=== PATIENT | female | born 1955 | race Caucasian/White ===

== ENCOUNTER 2019-01-25 08:24 | Inpatient (IN) | payer BC ==
[2019-01-25] MEDS ORDERED: Albuterol/Ipratropium 3.0-0.5 MG/3 ML Neb Soln NEB ONE (08:36)
--- NOTE | 2019-01-25 08:56 | EDM.PDOC ---
ED HPI GENERAL MEDICAL PROBLEM - General Chief Complaint: Respiratory Problem Stated Complaint: HAVING A HARD TIME BREATHING Time Seen by Provider: 01/25/19 08:35 Source of Information: Reports: Patient History Limitations: Reports: No Limitations - History of Present Illness INITIAL COMMENTS - FREE TEXT/NARRATIVE: This 63 yo female patient was brought to the ED by her mother due to increased shortness of breath. The patient reports she has noticed the shortness of breath over the past month, but it has been getting worse. 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 The patient reports she quit smoking last night. The patient reports she has been coughing up yellowish sputum for the past week. Onset: Gradual Duration: Week(s):, Constant, Getting Worse Location: Reports: Chest, Other Quality: Reports: Pressure Severity: Moderate Improves with: Reports: None Worsens with: Reports: None Associated Symptoms: Reports: cough w sputum, Shortness of Breath, Weakness Lower Back Pain Score (Numeric/FACES): 8 - Related Data Allergies Allergy/AdvReac Type Severity Reaction Status Date / Time No Known Allergies Allergy Verified 06/04/18 07:07 Home Meds: Home Meds Amitriptyline HCl 1 tab PO DAILY 01/12/15 [History] Cyclobenzaprine HCl 10 mg PO DAILY 01/12/15 [History] PARoxetine [Paxil] 40 mg PO DAILY 01/12/15 [History] Albuterol [Ventolin 2 MG/5 ML] 1 - 2 puff INH ASDIRECTED 06/03/18 [History] Aspirin [Ecotrin] 325 mg PO DAILY 06/03/18 [History] Atenolol 25 mg PO DAILY 06/03/18 [History] Clopidogrel Bisulfate [Clopidogrel] 75 mg PO DAILY 06/03/18 [History] Gabapentin [Neurontin] 300 mg PO TID 06/03/18 [History] Lidocaine 2% [Xylocaine 2% Jelly] 1 applic TOP ASDIRECTED 06/03/18 [History] Sennosides/Docusate Sodium [Senna-Docusate Sodium] 1 tab PO DAILY 06/03/18 [ History] atorvaSTATin [Lipitor] 10 mg PO DAILY 06/03/18 [History] oxyCODONE HCl/Acetaminophen [Endocet 10-325 mg Tablet] 1 tab PO ASDIRECTED PRN 06/03/18 [History] Past Medical History HEENT History: Reports: None Cardiovascular History: Reports: Hypertension Respiratory History: Reports: COPD Gastrointestinal History: Reports: Chronic Constipation Genitourinary History: Reports: None 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 MYOFASCIAL PAIN. RIGHT HIP PAIN. DEGENERATIVE DISC DISEASE LUMBOSACRAL Neurological History: Reports: None, Cerebral Aneurysms Psychiatric History: Reports: Anxiety, Depression Endocrine/Metabolic History: Reports: None Hematologic History: Reports: None Immunologic History: Reports: None Oncologic (Cancer) History: Reports: None Dermatologic History: Reports: None - Infectious Disease History Infectious Disease History: Reports: Chicken Pox - Past Surgical History Head Surgeries/Procedures: Reports: None HEENT Surgical History: Reports: None Cardiovascular Surgical History: Reports: Aneurysm Respiratory Surgical History: Reports: None GI Surgical History: Reports: None Female Surgical History: Reports: Section Musculoskeletal Surgical History: Reports: None Social & Family History - Tobacco Use Smoking Status *Q: Current Every Day Smoker Years of Tobacco use: 40 Packs/Tins Daily: 1 - Caffeine Use Caffeine Use: Reports: Coffee, Soda - Recreational Drug Use Recreational Drug Use: No - Living Situation & Occupation Living situation: Reports: Single Occupation: Employed ED ROS GENERAL - Review of Systems Review Of Systems: ROS reveals no pertinent complaints other than HPI. ED EXAM, GENERAL - Physical Exam Exam: See Below Exam Limited By: No Limitations General Appearance: Alert, WD/WN, Moderate Distress, Obese Eye Exam: Bilateral Eye: EOMI, Normal Inspection, PERRL Ears: Normal External Exam, Normal Canal, Hearing Grossly Normal, Normal TMs Nose: Normal Inspection, Normal Mucosa, No Blood Throat/Mouth: Normal Inspection Head: Atraumatic, Normocephalic Neck: Normal Inspection, Supple, Non-Tender, Full Range of Motion Respiratory/Chest: Decreased Breath Sounds Cardiovascular: Normal Peripheral Pulses, Regular Rate, Rhythm, No Edema, No Gallop, No JVD, No Murmur, No Rub GI/Abdominal: Normal Bowel Sounds, Soft, Non-Tender, No Organomegaly, No Distention, No Abnormal Bruit, No Mass (Female) Exam: Deferred Rectal (Female) Exam: Deferred Back Exam: Normal Inspection, Full Range of Motion, NT Extremities: Normal Inspection, Normal Range of Motion, Non-Tender, Normal Capillary Refill, No Pedal Edema Neurological: Alert, Oriented, CN II-XII Intact, Normal Cognition, Normal Gait, Normal Reflexes, No Motor/Sensory Deficits Psychiatric: Anxious Skin Exam: Warm, Dry, Intact, Normal Color, No Rash Lymphatic: No Adenopathy Course - Vital Signs Last Recorded V/S: Last Vital Signs Temp 36.2 C 01/25/19 08:26 Pulse 83 01/25/19 08:45 Resp 26 H 01/25/19 08:26 BP 154/90 H 01/25/19 08:26 Pulse Ox 95 01/25/19 08:45 - Orders/Labs/Meds Orders: Active Orders 24 hr Category Date Time Status EKG Documentation Completion [RC] URGENT Care 01/25/19 08:25 Active RT Aerosol Therapy [RC] ASDIRECTED Care 01/25/19 08:36 Active CULTURE BLOOD [BC] Stat Lab 01/25/19 08:33 Received CULTURE BLOOD [BC] Stat Lab 01/25/19 09:17 Ordered CULTURE SPUTUM + SMEAR [RM] Stat Lab 01/25/19 09:16 Ordered UA RFX MARLEN AND CULT IF INDIC [URIN] Urgent Lab 01/25/19 08:25 Ordered Azithromycin [Zithromax] 500 mg Med 01/25/19 09:21 Ordered Sodium Chloride 0.9% [Normal Saline] 250 ml IV ONETIME cefTRIAXone [Rocephin] 1,000 mg Med 01/25/19 09:21 Ordered Sodium Chloride 0.9% [Normal Saline] 100 ml IV ONETIME Medication Orders Azithromycin 500 mg/ Sodium (Chloride) 250 mls @ 250 mls/hr IV ONETIME ONE Stop: 01/25/19 10:20 Ceftriaxone Sodium 1,000 mg/ (Sodium Chloride) 100 mls @ 200 mls/hr IV ONETIME ONE Stop: 01/25/19 09:50 Labs: Laboratory Tests 01/25/19 01/25/19 01/25/19 Range/Units 08:33 08:33 08:33 WBC 16.5 H (5.0-10.0) 10^3/uL RBC 4.57 (4.2-5.4) 10^6/uL Hgb 14.5 D (12.0-16.0) g/dL Hct 43.6 (37.0-47.0) % MCV 95.4 D (80-100) fL MCH 31.7 (27.0-34.0) pg MCHC 33.3 (33.0-35.0) g/dL Plt Count 355 (150-450) 10^3/uL Neut % (Auto) 76.4 H (42.2-75.2) % Lymph % (Auto) 14.7 L (20.5-50.1) % [place] % (Auto) 8.5 H (2-8) % Eos % (Auto) 0.2 L (1.0-3.0) % Baso % (Auto) 0.2 (0.0-1.0) % Sodium 136 (135-145) mmol/L Potassium 3.7 (3.6-5.0) mmol/L Chloride 98 L (101-111) mmol/L Carbon Dioxide 23.0 (21.0-31.0) mmol/L Anion Gap 18.7 BUN 12 (7-18) mg/dL Creatinine 0.7 (0.6-1.3) mg/dL Est Cr Clr Drug Dosing 68.93 mL/min Estimated GFR (MDRD) > 60 BUN/Creatinine Ratio 17.14 Glucose 189 H (74-105) mg/dL Lactic Acid 3.3 H (0.5-2.2) mmol/L Calcium 8.6 (8.4-10.2) mg/dl Total Bilirubin 0.9 (0.2-1.0) mg/dL AST 28 (10-42) IU/L ALT 19 (10-60) IU/L Alkaline Phosphatase 82 (42-121) IU/L Troponin I 0.03 H* (0.00-0.02) ng/ml B-Natriuretic Peptide 819 H (0-100) pg/ml Total Protein 7.2 (6.7-8.2) g/dl Albumin 3.9 (3.2-5.5) g/dl Globulin 3.3 Albumin/Globulin Ratio 1.18 Meds: Medications Generic Name Dose Route Start Last Admin Trade Name Freq PRN Reason Stop Dose Admin Azithromycin 500 mg/ Sodium 250 mls @ 250 mls/hr 01/25/19 09:21 Chloride IV 01/25/19 10:20 ONETIME ONE Ceftriaxone Sodium 1,000 mg/ 100 mls @ 200 mls/hr 01/25/19 09:21 Sodium Chloride IV 01/25/19 09:50 ONETIME ONE Discontinued Medications Generic Name Dose Route Start Last Admin Trade Name Yung PRN Reason Stop Dose Admin Albuterol/Ipratropium 3 ml 01/25/19 08:36 01/25/19 08:44 Duoneb 3.0-0.5 Mg/3 Ml NEB 01/25/19 08:37 3 ml ONETIME ONE Administration Furosemide 40 mg 01/25/19 09:21 Lasix IVPUSH 01/25/19 09:22 NOW ONE Departure - Departure Time of Disposition: 09:31 Disposition: Admitted As Inpatient 67 Condition: Poor Clinical Impression: COPD exacerbation, Bronchitis - Discharge Information *PRESCRIPTION DRUG MONITORING PROGRAM REVIEWED*: Not Applicable *COPY OF PRESCRIPTION DRUG MONITORING REPORT IN PATIENT JAYY: Not Applicable Care Plan Goals: Discussed the history, examination, lab and treatments with Dr. Mancilla. The patient will be admitted to [facility] in [place] for continued evaluation and treatment as an inpatient. - My Orders Last 24 Hours: My Active Orders 01/25/19 08:25 EKG Documentation Completion [RC] URGENT UA RFX MARLEN AND CULT IF INDIC [URIN] Urgent 01/25/19 08:33 CULTURE BLOOD [BC] Stat 01/25/19 08:36 RT Aerosol Therapy [RC] ASDIRECTED 01/25/19 09:16 CULTURE SPUTUM + SMEAR [RM] Stat 01/25/19 09:17 CULTURE BLOOD [BC] Stat 01/25/19 09:21 Azithromycin [Zithromax] 500 mg Sodium Chloride 0.9% [Normal Saline] 250 ml IV ONETIME cefTRIAXone [Rocephin] 1,000 mg Sodium Chloride 0.9% [Normal Saline] 100 ml IV ONETIME - Assessment/Plan Last 24 Hours: My Active Orders 01/25/19 08:25 EKG Documentation Completion [RC] URGENT UA RFX MARLEN AND CULT IF INDIC [URIN] Urgent 01/25/19 08:33 CULTURE BLOOD [BC] Stat 01/25/19 08:36 RT Aerosol Therapy [RC] ASDIRECTED 01/25/19 09:16 CULTURE SPUTUM + SMEAR [RM] Stat 01/25/19 09:17 CULTURE BLOOD [BC] Stat 01/25/19 09:21 Azithromycin [Zithromax] 500 mg Sodium Chloride 0.9% [Normal Saline] 250 ml IV ONETIME cefTRIAXone [Rocephin] 1,000 mg Sodium Chloride 0.9% [Normal Saline] 100 ml IV ONETIME
[2019-01-25 09:08] LABS: ANION GAP 18.7; CHLORIDE,CL 98 mmol/L (101-111); SODIUM,NA 136 mmol/L (135-145)
--- NOTE | 2019-01-25 09:12 | CR ---
Clinical history: 63-year-old obese female "smoker" complaining of shortness of breath. No previous or comparison CXR. Interpretation: Abnormal. *Peribronchial "cuffing" and... generalized abnormal interstitial pattern. O2 sats? Normal cardiac silhouette without cephalization of vascular flow, signs of alveolar edema or dependent effusion. No focal lobar consolidation i.e. no alveolar infiltrates, atelectasis or collapse. No lung mass or hilar lymphadenopathy. No air trapping. No pneumothorax or free subdiaphragmatic air. CONCLUSION: Abnormal interstitial pattern. No signs of focal consolidation (lobar pneumonia) or heart failure.
[2019-01-25] MEDS ORDERED: Furosemide 40 MG/4 ML VIAL IVPUSH ONE (09:21)
[2019-01-25] MEDS ORDERED: Azithromycin 500 MG in Sodium Chloride 0.9% 250 ML IV ONE (09:21)
[2019-01-25 10:02] LABS: BASE EXCESS ARTERIAL 0 mmol/L ((-2)-(+3)); BICARBONATE,ARTERIAL 24.6 mmol/L (22-26); O2 DELIVERY DEVICE NASAL CANNULA; O2 SATURATION ARTERIAL 96 % (95-100); PCO2 ARTERIAL 41 mmHg (35-45); PO2 ARTERIAL 74 mmHg (70-100)
[2019-01-25] MEDS ORDERED: LORazepam 2 MG/ML Syringe IVPUSH ONE (10:02)
[2019-01-25 10:03] LABS: ALLEN TEST NP brachial
[2019-01-25] MEDS ORDERED: Sodium Chloride 0.9% 10 ML Syringe FLUSH PRN (11:49)
[2019-01-25] MEDS ORDERED: Albuterol/Ipratropium 3.0-0.5 MG/3 ML Neb Soln NEB PRN (11:51)
[2019-01-25] MEDS ORDERED: Cyclobenzaprine 10 MG Tab PO PRN (11:53)
[2019-01-25] MEDS ORDERED: Acetaminophen/oxyCODONE 325-5 MG Tab PO PRN (11:53)
--- NOTE | 2019-01-25 12:14 | PCM.HP ---
H&P History of Present Illness - General Date of Service: 01/25/19 Admit Problem/Dx: Admission Diagnosis/Problem Admission Diagnosis/Problem Chronic obstructive pulmonary disease with bronchospasm Source of Information: Patient, Family History Limitations: Reports: Other (speech impediment, hearing difficulty) - History of Present Illness Initial Comments - Free Text/Narative: 63 yo F with PMH of COPD, brain aneurysm s/p clipping/coiling, hypertension, cigarette smoking, who presents with SOB. SOB has been ongoing for a few weeks but worsened in the past two days. Also associated with cough, productive of scanty white sputum In the ED, she was noted to be hypoxic on room air with improvement when placed on nasal canula. She also complains of right wrist pain, sharp, moderate to severe intensity. Lower Back Pain Score (Numeric/FACES): 3 - Related Data Allergies/Adverse Reactions: Allergies Allergy/AdvReac Type Severity Reaction Status Date / Time No Known Allergies Allergy Verified 01/25/19 10:01 Home Medications: Home Meds Cyclobenzaprine HCl 10 mg PO TID PRN 01/12/15 [History] PARoxetine [Paxil] 40 mg PO DAILY 01/12/15 [History] Atenolol 50 mg PO DAILY 06/03/18 [History] Clopidogrel Bisulfate [Clopidogrel] 75 mg PO DAILY 06/03/18 [History] Gabapentin [Neurontin] 300 mg PO TID 06/03/18 [History] atorvaSTATin [Lipitor] 20 mg PO DAILY 01/25/19 [History] hydroCHLOROthiazide [Hydrochlorothiazide] 50 mg PO DAILY 01/25/19 [History] oxyCODONE HCl/Acetaminophen [Percocet 10-325 mg Tablet] 1 tab PO Q8HR PRN [History] Past Medical History HEENT History: Reports: Hard of Hearing, Impaired Vision Cardiovascular History: Reports: Hypertension Respiratory History: Reports: COPD Gastrointestinal History: Reports: Chronic Constipation Genitourinary History: Reports: 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 MYOFASCIAL PAIN. RIGHT HIP PAIN. DEGENERATIVE DISC DISEASE LUMBOSACRAL Neurological History: Reports: None, Cerebral Aneurysms Psychiatric History: Reports: Anxiety, Depression Endocrine/Metabolic History: Reports: None Hematologic History: Reports: None Other Hematologic History: thrombocytosis. erythrocytosis Immunologic History: Reports: None Oncologic (Cancer) History: Reports: None Dermatologic History: Reports: None - Infectious Disease History Infectious Disease History: Reports: Chicken Pox - Past Surgical History Head Surgeries/Procedures: Reports: None HEENT Surgical History: Reports: Tonsillectomy Cardiovascular Surgical History: Reports: Aneurysm Respiratory Surgical History: Reports: None GI Surgical History: Reports: None Female Surgical History: Reports: Section Musculoskeletal Surgical History: Reports: None Social & Family History - Tobacco Use Smoking Status *Q: Current Every Day Smoker Years of Tobacco use: 45 Packs/Tins Daily: 1 - Caffeine Use Caffeine Use: Reports: None - Recreational Drug Use Recreational Drug Use: Yes Drug Use in Last 12 Months: Yes Recreational Drug Type: Reports: Marijuana/Hashish - Living Situation & Occupation Living situation: Reports: Single Occupation: Employed H&P Review of Systems - Review of Systems: Review Of Systems: See Below General: Reports: No Symptoms. Denies: Fever HEENT: Reports: No Symptoms Pulmonary: Reports: Shortness of Breath, Cough, Sputum Cardiovascular: Reports: No Symptoms Gastrointestinal: Reports: No Symptoms Genitourinary: Reports: No Symptoms Musculoskeletal: Reports: No Symptoms Skin: Reports: No Symptoms Psychiatric: Reports: No Symptoms Neurological: Reports: Paresthesia, Other Exam - Exam Exam: See Below - Vital Signs Vital Signs: Last Vital Signs Temp 37.6 C 01/25/19 10:51 Pulse 80 01/25/19 10:51 Resp 24 H 01/25/19 10:51 BP 115/64 01/25/19 10:51 Pulse Ox 97 01/25/19 10:51 Weight: 80.014 kg - Exam General: Alert, Oriented HEENT: Conjunctiva Clear Neck: Supple Lungs: Clear to Auscultation Cardiovascular: Regular Rate, Regular Rhythm GI/Abdominal Exam: Normal Bowel Sounds, Soft Extremities: Normal Inspection, Non-Tender, No Pedal Edema - Patient Data Lab Results Last 24 hrs: Laboratory Results - last 24 hr 01/25/19 01/25/19 01/25/19 Range/Units 08:33 08:33 08:33 WBC 16.5 H (5.0-10.0) 10^3/uL RBC 4.57 (4.2-5.4) 10^6/uL Hgb 14.5 D (12.0-16.0) g/dL Hct 43.6 (37.0-47.0) % MCV 95.4 D (80-100) fL MCH 31.7 (27.0-34.0) pg MCHC 33.3 (33.0-35.0) g/dL Plt Count 355 (150-450) 10^3/uL Neut % (Auto) 76.4 H (42.2-75.2) % Lymph % (Auto) 14.7 L (20.5-50.1) % [place] % (Auto) 8.5 H (2-8) % Eos % (Auto) 0.2 L (1.0-3.0) % Baso % (Auto) 0.2 (0.0-1.0) % ABG pH (7.35-7.45) ABG pCO2 (35-45) mmHg ABG pO2 (70-100) mmHg ABG HCO3 (22-26) mmol/L ABG O2 Saturation (95-100) % ABG Base Excess ((-2)-(+3)) mmol/L Shashi Test O2 Delivery Device Sodium 136 (135-145) mmol/L Potassium 3.7 (3.6-5.0) mmol/L Chloride 98 L (101-111) mmol/L Carbon Dioxide 23.0 (21.0-31.0) mmol/L Anion Gap 18.7 BUN 12 (7-18) mg/dL Creatinine 0.7 (0.6-1.3) mg/dL Est Cr Clr Drug Dosing 68.93 mL/min Estimated GFR (MDRD) > 60 BUN/Creatinine Ratio 17.14 Glucose 189 H (74-105) mg/dL Lactic Acid 3.3 H (0.5-2.2) mmol/L Calcium 8.6 (8.4-10.2) mg/dl Total Bilirubin 0.9 (0.2-1.0) mg/dL AST 28 (10-42) IU/L ALT 19 (10-60) IU/L Alkaline Phosphatase 82 (42-121) IU/L Troponin I 0.03 H* (0.00-0.02) ng/ml B-Natriuretic Peptide 819 H (0-100) pg/ml Total Protein 7.2 (6.7-8.2) g/dl Albumin 3.9 (3.2-5.5) g/dl Globulin 3.3 Albumin/Globulin Ratio 1.18 Urine Color (YELLOW) Urine Appearance (CLEAR) Urine pH (5.0-9.0) Ur Specific [place] (1.005-1.030) Urine Protein (NEGATIVE) Urine Glucose (UA) (NEGATIVE) Urine Ketones (NEGATIVE) Urine Occult Blood (NEGATIVE) Urine Nitrite (NEGATIVE) Urine Bilirubin (NEGATIVE) Urine Urobilinogen (0.2-1.0) mg/dL Ur Leukocyte Esterase (NEGATIVE) Urine RBC /HPF Urine WBC (0-5/HPF) /HPF Ur Epithelial Cells /HPF Urine Bacteria (0-FEW/HPF) /HPF 01/25/19 01/25/19 Range/Units 09:55 09:58 WBC (5.0-10.0) 10^3/uL RBC (4.2-5.4) 10^6/uL Hgb (12.0-16.0) g/dL Hct (37.0-47.0) % MCV (80-100) fL MCH (27.0-34.0) pg MCHC (33.0-35.0) g/dL Plt Count (150-450) 10^3/uL Neut % (Auto) (42.2-75.2) % Lymph % (Auto) (20.5-50.1) % [place] % (Auto) (2-8) % Eos % (Auto) (1.0-3.0) % Baso % (Auto) (0.0-1.0) % ABG pH 7.40 (7.35-7.45) ABG pCO2 41 (35-45) mmHg ABG pO2 74 (70-100) mmHg ABG HCO3 24.6 (22-26) mmol/L ABG O2 Saturation 96 (95-100) % ABG Base Excess 0 ((-2)-(+3)) mmol/L Shashi Test Preparole Counseling Aide brachial O2 Delivery Device Nasal cannula Sodium (135-145) mmol/L Potassium (3.6-5.0) mmol/L Chloride (101-111) mmol/L Carbon Dioxide (21.0-31.0) mmol/L Anion Gap BUN (7-18) mg/dL Creatinine (0.6-1.3) mg/dL Est Cr Clr Drug Dosing mL/min Estimated GFR (MDRD) BUN/Creatinine Ratio Glucose (74-105) mg/dL Lactic Acid (0.5-2.2) mmol/L Calcium (8.4-10.2) mg/dl Total Bilirubin (0.2-1.0) mg/dL AST (10-42) IU/L ALT (10-60) IU/L Alkaline Phosphatase (42-121) IU/L Troponin I (0.00-0.02) ng/ml B-Natriuretic Peptide (0-100) pg/ml Total Protein (6.7-8.2) g/dl Albumin (3.2-5.5) g/dl Globulin Albumin/Globulin Ratio Urine Color Yellow (YELLOW) Urine Appearance Clear (CLEAR) Urine pH 6.0 (5.0-9.0) Ur Specific [place] 1.015 (1.005-1.030) Urine Protein Negative (NEGATIVE) Urine Glucose (UA) 100 H (NEGATIVE) Urine Ketones Negative (NEGATIVE) Urine Occult Blood Moderate H (NEGATIVE) Urine Nitrite Negative (NEGATIVE) Urine Bilirubin Negative (NEGATIVE) Urine Urobilinogen 0.2 (0.2-1.0) mg/dL Ur Leukocyte Esterase Negative (NEGATIVE) Urine RBC 5-10 H /HPF Urine WBC 0-5 (0-5/HPF) /HPF Ur Epithelial Cells Moderate H /HPF Urine Bacteria Few (0-FEW/HPF) /HPF Result Diagrams: 01/25/19 08:33 01/25/19 08:33 Problem List Initiated/Reviewed/Updated: Yes Orders Last 24hrs: Active Orders 24 hr Category Date Time Status Patient Status [ADT] Routine ADT 01/25/19 11:49 Active Ambulate [RC] ASDIRECTED Care 01/25/19 11:49 Active EKG Documentation Completion [RC] URGENT Care 01/25/19 08:25 Active Height and Weight [RC] DAILY Care 01/25/19 11:49 Active Oxygen Therapy [RC] PRN Care 01/25/19 11:49 Active Peripheral IV Care [RC] . DIRECTED Care 01/25/19 11:49 Active RT Aerosol Therapy [RC] ASDIRECTED Care 01/25/19 08:36 Active RT Aerosol Therapy [RC] ASDIRECTED Care 01/25/19 11:52 Active RT Post Treatment Assessment [RC] Click to Edit Care 01/25/19 11:57 Active RT Pre-Treatment Assessment [RC] Click to Edit Care 01/25/19 11:57 Active Up With Assistance [RC] ASDIRECTED Care 01/25/19 11:49 Active VTE/DVT Education [RC] PER UNIT ROUTINE Care 01/25/19 11:49 Active Vital Signs [RC] Q4H Care 01/25/19 11:49 Active Regular Diet [DIET] Diet 01/25/19 Breakfast Active CULTURE BLOOD [BC] Stat Lab 01/25/19 08:33 Received CULTURE BLOOD [BC] Stat Lab 01/25/19 09:26 Received CULTURE SPUTUM + SMEAR [RM] Stat Lab 01/25/19 09:16 Ordered Albuterol/Ipratropium [DuoNeb 3.0-0.5 MG/3 ML] Med 01/25/19 11:51 Ordered 3 ml NEB Q2H PRN Albuterol/Ipratropium [DuoNeb 3.0-0.5 MG/3 ML] Med 01/25/19 15:00 Ordered 3 ml NEB Q4HRRT Atenolol [Tenormin] Med 01/25/19 12:00 Ordered 50 mg PO DAILY Azithromycin [Zithromax] Med 01/26/19 09:00 Ordered 500 mg PO DAILY Clopidogrel [Plavix] Med 01/25/19 12:00 Ordered 75 mg PO DAILY Cyclobenzaprine [Flexeril] Med 01/25/19 11:53 Ordered 10 mg PO TID PRN Enoxaparin [Lovenox] Med 01/25/19 12:00 Ordered 40 mg SUBCUT DAILY Gabapentin [Neurontin] Med 01/25/19 14:00 Ordered 300 mg PO TID Mometasone/Formoterol [Dulera 100-5 MCG] Med 01/25/19 18:00 Ordered 2 puff IH BIDRT Nicotine [Habitrol] Med 01/25/19 12:00 Ordered 21 mg TRDERM DAILY PARoxetine [Paxil] Med 01/25/19 12:00 Ordered 40 mg PO DAILY Sodium Chloride 0.9% [Saline Flush] Med 01/25/19 11:49 Ordered 10 ml FLUSH ASDIRECTED PRN Tiotropium [Spiriva HandiHaler] Med 01/25/19 12:00 Ordered 18 mcg INH DAILY atorvaSTATin [Lipitor] Med 01/25/19 12:00 Ordered 20 mg PO DAILY cefTRIAXone [Rocephin] 1 gm Med 01/26/19 08:00 Ordered Sodium Chloride 0.9% [Normal Saline] 50 ml IV Q24H hydroCHLOROthiazide [Hydrochlorothiazide] Med 01/25/19 12:00 Ordered 50 mg PO DAILY oxyCODONE HCl/Acetaminophen Med 01/25/19 11:53 Ordered 1 tab PO Q8HR PRN predniSONE Med 01/26/19 08:00 Ordered 50 mg PO WITHBREAKFAST Peripheral IV Insertion Adult [OM.PC] Routine Oth 01/25/19 11:49 Ordered Saline Lock Insert [OM.PC] Routine Oth 01/25/19 11:49 Ordered Medication Orders Albuterol/Ipratropium (Duoneb 3.0-0.5 Mg/3 Ml) 3 ml NEB Q4HRRT MIKE Albuterol/Ipratropium (Duoneb 3.0-0.5 Mg/3 Ml) 3 ml NEB Q2H PRN PRN Reason: Shortness of Breath Atenolol (Tenormin) 50 mg PO DAILY [facility] Atorvastatin Calcium (Lipitor) 20 mg PO DAILY [facility] Azithromycin (Zithromax) 500 mg PO DAILY [facility] Clopidogrel Bisulfate (Plavix) 75 mg PO DAILY [facility] Cyclobenzaprine HCl (Flexeril) 10 mg PO TID PRN PRN Reason: Muscle Spasm Gabapentin (Neurontin) 300 mg PO TID [facility] Ceftriaxone Sodium 1 gm/ (Sodium Chloride) 50 mls @ 50 mls/hr IV Q24H [facility] Mometasone Furoate/Formoterol Fumar (Dulera 100-5 Mcg) 2 puff IH BIDRT [facility] Nicotine (Habitrol) 21 mg TRDERM DAILY [facility] Non-Formulary Medication (Hydrochlorothiazide [Hydrochlorothiazide]) 50 mg PO DAILY [facility] Non-Formulary Medication (Oxycodone Hcl/Acetaminophen) 1 tab PO Q8HR PRN PRN Reason: Pain Non-Formulary Medication (Paroxetine [Paxil]) 40 mg PO DAILY [facility] Prednisone (Prednisone) 50 mg PO WITHBREAKFAST [facility] Sodium Chloride (Saline Flush) 10 ml FLUSH ASDIRECTED PRN PRN Reason: Keep Vein Open Tiotropium [place] (Spiriva Handihaler) 18 mcg INH DAILY [facility] Assessment/Plan Comment:: 63 yo F with PMH of COPD p/w SOB #SOB likely COPD exacerbation given hx of smoking However ABG shows no significant hypercapnia, HCO3 in serum is 23. In the setting of severe COPD I would expect a higher than usual PCo2 and HCO3 Also BNP is elevated, no hx of CHF Plan: Check CTPE to r/o PE Check EKG can continue with COPD protocol for now including duonebs, dulera, spiriva and prednisone treat empirically for CAP with azithromycin/ceftriaxone I counselled the patient to quit smoking #right wrist pain likely carpal tunnel syndrome continue gabapentin pain mgt #Hx of brain aneurysm continue plavix #Cigarette smoking counseled px to quit smoking nicotine patch #Code status FC #DVT ppx SC lovenox
[2019-01-25] MEDS ORDERED: Iopamidol 755 Mg/ML 100 ML Bottle IVPUSH ONE (12:25)
[2019-01-25] MEDS ORDERED: oxyCODONE 5 MG Tab PO PRN (12:47)
[2019-01-25] MEDS: Nicotine 21 MG/24 Hr Patch TRDERM SCH ×2 (13:56→15:26)
[2019-01-25] MEDS: Enoxaparin 40 MG/0.4 ML Syringe SUBCUT SCH ×2 (13:57→15:25)
[2019-01-25] MEDS: Hydrochlorothiazide 25 MG Tab PO SCH ×2 (13:57→15:22)
[2019-01-25] MEDS: atorvaSTATin 20 MG Tab PO SCH ×2 (13:57→15:22)
[2019-01-25] MEDS: Tiotropium Inhaler 18 MCG Inhalation Powder Cap Kit of 5 INH SCH ×2 (13:58→15:26)
[2019-01-25] MEDS: Atenolol 50 MG Tab PO SCH ×2 (13:58→15:27)
[2019-01-25] MEDS: Clopidogrel 75 MG Tab PO SCH ×2 (13:58→15:22)
[2019-01-25] MEDS: PARoxetine 20 MG Tab PO SCH ×2 (13:58→15:22)
[2019-01-25] MEDS: Albuterol/Ipratropium 3.0-0.5 MG/3 ML Neb Soln NEB SCH ×3 (14:58→22:58)
--- NOTE | 2019-01-25 15:15 | CT ---
Clinical history: 63-year-old 176 pound hypertensive, "noncompliant", female smoker with unexplained shortness of breath. (History of intracranial aneurysms; aneurysms "coiled"; and, drug abuse) Scan technique: Volume acquisition of data from the chest (bony thorax, lungs and mediastinum) employing pulmonary embolism technique i.e. 67 cc concentrated nonionic Isovue 370 at 5 cc/s via power injector while patient was lying supine on the Siemens multi slice scanner [place], [place]. All data archived in the PACS system for storage, reformatting axial/sagittal/coronal planes and study is (lung/mediastinal window). Patient uncooperative and would not (could not?) comply with technologist instructions for satisfactorily performing this diagnostic procedure. Interpretation: 1. Chronic severe multilevel lower cervical disc disease; and, multilevel thoracic disc disease this osteopenic patient with hypertrophic spondylosis. No sign of pathologic skeletal lesion, spinal fracture or dislocation. 2. Respiratory motion artifact and Valsalva contributing to the untimely delivery of the contrast bolus to the pulmonary arteries. 3. Scattered cystic/bullous lesions both lung dozier and bibasilar atelectasis. Incomplete filling of the pulmonary artery circulation but no suggestion of intraluminal filling defect or thrombus and no peripheral pleural-based wedge shaped infarcts. No abnormal focal oligemia or pleural effusions. 4. No lung mass, significant hilar/mediastinal lymphadenopathy, or focal lobar pneumonia. 5. Normal cardiac silhouette. No pericardial effusion. 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 No cephalization of vascular flow, signs of alveolar edema or dependent pleural effusion. CONCLUSION: Low probability pulmonary embolism/infarct (significant technical limitations this exam). Serum D dimer? COPD. No signs of heart failure, lung malignancy or lobar pneumonia.
[2019-01-25] MEDS: Gabapentin 300 MG Cap PO SCH ×2 (15:23→21:08)
[2019-01-25] MEDS: Formoterol/Mometasone 100-5 MCG 8.8 GM Inhaler IH SCH (18:25)
[2019-01-25] MEDS ORDERED: Melatonin 3 MG Tab PO PRN (18:58)
[2019-01-26] MEDS: Albuterol/Ipratropium 3.0-0.5 MG/3 ML Neb Soln NEB SCH ×3 (03:10→11:28)
[2019-01-26] MEDS: Formoterol/Mometasone 100-5 MCG 8.8 GM Inhaler IH SCH (07:12)
[2019-01-26] MEDS ORDERED: predniSONE 20 MG Tab PO SCH (08:00)
[2019-01-26] MEDS ORDERED: Azithromycin 250 MG Tab PO SCH (09:00)
[2019-01-26] MEDS: Nicotine 21 MG/24 Hr Patch TRDERM SCH (09:19)
[2019-01-26] MEDS: Hydrochlorothiazide 25 MG Tab PO SCH (09:20)
[2019-01-26] MEDS: atorvaSTATin 20 MG Tab PO SCH (09:21)
[2019-01-26] MEDS: Gabapentin 300 MG Cap PO SCH (09:21)
[2019-01-26] MEDS: Enoxaparin 40 MG/0.4 ML Syringe SUBCUT SCH (09:21)
[2019-01-26] MEDS: Clopidogrel 75 MG Tab PO SCH (09:22)
[2019-01-26] MEDS: PARoxetine 20 MG Tab PO SCH (09:22)
[2019-01-26] MEDS: Atenolol 50 MG Tab PO SCH (09:24)
[2019-01-26] MEDS: Tiotropium Inhaler 18 MCG Inhalation Powder Cap Kit of 5 INH SCH (09:25)
[2019-01-26] MEDS ORDERED: cefTRIAXone 1 GM in Sodium Chloride 0.9% 50 ML IV SCH (10:00)
[2019-01-26 13:46] VITALS: BP 106/56
--- NOTE | 2019-01-26 14:44 | PCM.DCSUM1 ---
Discharge Summary - Hospital Course Free Text/Narrative:: 63 yo F with PMH of COPD, brain aneurysm s/p clipping/coiling, hypertension, cigarette smoking, who presents with SOB. SOB has been ongoing for weeks but worsened in the past two days. Also associated with cough, productive of scanty white sputum In the ED, she was noted to be hypoxic on room air with improvement when placed on nasal canula. An initial impression of COPD exacerbation was made. There was also a possible anxiety component in the patient's presentation However ABG shows no significant hypercapnia, HCO3 in serum is 23. In the setting of severe COPD I would expect a higher than usual PCo2 and HCO3 We checked a CTPE to r/o PE. No PE or focal oligemia was seen in the technically limited study, however widespread cystic and bullous lesions were seen suggestive of ILD/IPF Patient's had resolved shortly after admission. She had a walking desat study that did not suggest any need for home oxygen. I counselled the patient to quit smoking Follow up with PCP and the Pulmonary clinic - Discharge Data Discharge Date: 01/26/19 Discharge Disposition: Home, Self-Care 01 Condition: Fair - Patient Summary/Data Consults: Consultations 01/26/19 10:50 OT Evaluation and Treatment [CONS] Routine PT Evaluation and Treatment [CONS] Routine - Patient Instructions Diet: Usual Diet as Tolerated Activity: As Tolerated Other/Special Instructions: STOP SMOKING - Discharge Plan *PRESCRIPTION DRUG MONITORING PROGRAM REVIEWED*: Not Applicable *COPY OF PRESCRIPTION DRUG MONITORING REPORT IN PATIENT JAYY: Not Applicable Home Medications: Home Meds Cyclobenzaprine HCl 10 mg PO TID PRN 01/12/15 [History] PARoxetine [Paxil] 40 mg PO DAILY 01/12/15 [History] Atenolol 50 mg PO DAILY 06/03/18 [History] Clopidogrel Bisulfate [Clopidogrel] 75 mg PO DAILY 06/03/18 [History] Gabapentin [Neurontin] 300 mg PO TID 06/03/18 [History] atorvaSTATin [Lipitor] 20 mg PO DAILY 01/25/19 [History] hydroCHLOROthiazide [Hydrochlorothiazide] 50 mg PO DAILY 01/25/19 [History] oxyCODONE HCl/Acetaminophen [Percocet 10-325 mg Tablet] 1 tab PO Q8HR PRN [History] Patient Handouts: Steps to Quit Smoking, [id number], Coping with Quitting Smoking Referrals: Nohelia Vazquez MD [Physician] - PCP,Unknown [Ordering Only Provider] - - Discharge Summary/Plan Comment DC Time >30 min.: Yes - General Info Date of Service: 01/26/19 Admission Dx/Problem (Free Text: Admission Diagnosis/Problem Admission Diagnosis/Problem Chronic obstructive pulmonary disease with bronchospasm Subjective Update: no SOB, no wheezing, no chest pain right wrist pain is improved. - Review of Systems General: Reports: No Symptoms HEENT: Reports: No Symptoms Pulmonary: Reports: No Symptoms Cardiovascular: Reports: No Symptoms Gastrointestinal: Reports: No Symptoms Genitourinary: Reports: No Symptoms Musculoskeletal: Reports: No Symptoms - Patient Data Vitals - Most Recent: Last Vital Signs Temp 36.4 C 01/26/19 12:00 Pulse 70 01/26/19 12:00 Resp 20 01/26/19 12:00 BP 106/56 L 01/26/19 12:00 Pulse Ox 93 L 01/26/19 12:00 Weight - Most Recent: 79.878 kg I&O - Last 24 hours: Intake & Output 01/25/19 01/26/19 01/26/19 22:59 06:59 14:59 Intake Total 2019 250 420 Balance 2019 250 420 Lab Results - Last 24 hrs: Laboratory Results - last 24 hr 01/25/19 Range/Units 15:35 Lactic Acid 1.5 (0.5-2.2) mmol/L MARLEN Results - Last 24 hrs: Microbiology 01/25/19 09:26 Aerobic Blood Culture - Preliminary Blood NO GROWTH AFTER 1 DAY Anaerobic Blood Culture - Preliminary NO GROWTH AFTER 1 DAY 01/25/19 08:33 Aerobic Blood Culture - Preliminary Blood NO GROWTH AFTER 1 DAY Anaerobic Blood Culture - Preliminary NO GROWTH AFTER 1 DAY Med Orders - Current: Current Medications Albuterol/Ipratropium (Duoneb 3.0-0.5 Mg/3 Ml) 3 ml NEB Q4HRRT [facility] Last Admin: 01/26/19 11:28 Dose: 3 ml Albuterol/Ipratropium (Duoneb 3.0-0.5 Mg/3 Ml) 3 ml NEB Q2H PRN PRN Reason: Shortness of Breath Last Admin: 01/25/19 12:00 Dose: 3 ml Atenolol (Tenormin) 50 mg PO DAILY [facility] Last Admin: 01/26/19 09:24 Dose: 50 mg Atorvastatin Calcium (Lipitor) 20 mg PO DAILY [facility] Last Admin: 01/26/19 09:21 Dose: 20 mg Azithromycin (Zithromax) 500 mg PO DAILY [facility] Last Admin: 01/26/19 09:24 Dose: 500 mg Clopidogrel Bisulfate (Plavix) 75 mg PO DAILY [facility] Last Admin: 01/26/19 09:22 Dose: 75 mg Cyclobenzaprine HCl (Flexeril) 10 mg PO TID PRN PRN Reason: Muscle Spasm Last Admin: 01/25/19 19:36 Dose: 10 mg Enoxaparin Sodium (Lovenox) 40 mg SUBCUT DAILY [facility] Last Admin: 01/26/19 09:21 Dose: 40 mg Gabapentin (Neurontin) 300 mg PO TID [facility] Last Admin: 01/26/19 09:21 Dose: 300 mg Hydrochlorothiazide (Hydrochlorothiazide) 50 mg PO DAILY [facility] Last Admin: 01/26/19 09:20 Dose: 50 mg Ceftriaxone Sodium 1 gm/ (Sodium Chloride) 50 mls @ 100 mls/hr IV Q24H [facility] Last Admin: 01/26/19 10:21 Dose: 100 mls/hr Melatonin (Melatonin) 3 mg PO BEDTIME PRN PRN Reason: Insomnia Last Admin: 01/25/19 21:08 Dose: 3 mg Mometasone Furoate/Formoterol Fumar (Dulera 100-5 Mcg) 2 puff IH BIDRT [facility] Last Admin: 01/26/19 07:12 Dose: 2 puff Nicotine (Habitrol) 21 mg TRDERM DAILY [facility] Last Admin: 01/26/19 09:19 Dose: 21 mg Oxycodone HCl (Oxycodone) 5 mg PO Q8HR PRN PRN Reason: PAIN Oxycodone/Acetaminophen (Percocet 325-5 Mg) 1 tab PO Q8HR PRN PRN Reason: Pain Last Admin: 01/25/19 15:22 Dose: 1 tab Paroxetine HCl (Paxil) 40 mg PO DAILY [facility] Last Admin: 01/26/19 09:22 Dose: 40 mg Prednisone (Prednisone) 50 mg PO WITHBREAKFAST [facility] Last Admin: 01/26/19 09:19 Dose: 50 mg Sodium Chloride (Saline Flush) 10 ml FLUSH ASDIRECTED PRN PRN Reason: Keep Vein Open Last Admin: 01/25/19 21:10 Dose: 10 ml Tiotropium Ewing (Spiriva Handihaler) 18 mcg INH DAILY [facility] Last Admin: 01/26/19 09:25 Dose: 1 cap Discontinued Medications Albuterol/Ipratropium (Duoneb 3.0-0.5 Mg/3 Ml) 3 ml NEB ONETIME ONE Stop: 01/25/19 08:37 Last Admin: 01/25/19 08:44 Dose: 3 ml Furosemide (Lasix) 40 mg IVPUSH NOW ONE Stop: 01/25/19 09:22 Last Admin: 01/25/19 09:40 Dose: 40 mg Azithromycin 500 mg/ Sodium (Chloride) 250 mls @ 250 mls/hr IV ONETIME ONE Stop: 01/25/19 10:20 Last Admin: 01/25/19 10:23 Dose: 250 mls/hr Ceftriaxone Sodium 1,000 mg/ (Sodium Chloride) 100 mls @ 200 mls/hr IV ONETIME ONE Stop: 01/25/19 09:50 Last Admin: 01/25/19 09:46 Dose: 200 mls/hr Iopamidol (Isovue-370 (76%)) 100 ml IVPUSH ONETIME ONE Stop: 01/25/19 12:26 Last Admin: 01/25/19 13:32 Dose: 67 ml Lorazepam (Ativan) 1 mg IVPUSH ONETIME ONE Stop: 01/25/19 10:03 Last Admin: 01/25/19 10:09 Dose: 1 mg - Exam General: Reports: Alert, Oriented HEENT: Reports: Pupils Equal Neck: Reports: Supple Lungs: Reports: Clear to Auscultation Cardiovascular: Reports: Regular Rate, Regular Rhythm GI/Abdominal Exam: Normal Bowel Sounds, Soft, Non-Tender Extremities: Normal Inspection. No: Pedal Edema
== END 2019-01-26 14:55 | disposition home or self-care (01) | DRG 140 ==
LOC: DL.ED 08:24 → UNDOADMIN 10:44 → DL.MS 10:44
PROVIDERS: ADMIT Hospitalist; ATTEND Hospitalist
DX: J44.1 Chronic obstructive pulmonary disease with (acute) exacerbation (principal); F17.210 Nicotine dependence, cigarettes, uncomplicated; I10 Essential (primary) hypertension; F41.9 Anxiety disorder, unspecified; K59.09 Other constipation; M19.91 Primary osteoarthritis, unspecified site; G89.29 Other chronic pain; M54.9 Dorsalgia, unspecified; H54.7 Unspecified visual loss; H91.90 Unspecified hearing loss, unspecified ear; F32.9 Major depressive disorder, single episode, unspecified; M25.531 Pain in right wrist; Z79.82 Long term (current) use of aspirin; Z79.899 Other long term (current) drug therapy; Z71.6 Tobacco abuse counseling
CPT/HCPCS: 36415; 36600; 71045; 71260; 80053; 81001; 82803; 83605; 83880; 84484; 85025; 87040; 93005; 94618; 94640; 96365; 96375; 97162-GP; 99285-25; A9270-GY; J0456; J0696; J1650; J1940; J2060; J7050; J7620-GY; Q9967

== ENCOUNTER 2022-06-23 14:30 | Emergency (ER) | payer BC ==
[2022-06-23] MEDS ORDERED: Cephalexin 500 MG Cap PO ONE (14:31)
[2022-06-23 15:18] LABS: ANION GAP 18.2 mEq/L (7-13); CHLORIDE,CL 98 mmol/L (98-107); SODIUM,NA 140 mmol/L (136-145)
[2022-06-23 15:24] LABS: ESTIMATED GFR 53 mL/min (>=60)
[2022-06-23 15:31] LABS: PTT,PARTIAL THROMBOPLSTIN TIME 23.8 SEC (22.0-34.0)
[2022-06-23] MEDS ORDERED: Lactated Ringers 1,000 ML IV ONE (15:33)
[2022-06-23] MEDS ORDERED: Potassium Chloride 10 MEQ Tab.ER PO ONE (15:33)
[2022-06-23] MEDS ORDERED: Acetaminophen 500 MG Tab PO ONE (16:11)
[2022-06-23 17:13] LABS: AMPHETAMINES,URINE NEGATIVE (NEGATIVE); BARBITURATES,URINE NEGATIVE (NEGATIVE); BENZODIAZEPINE,URINE NEGATIVE (NEGATIVE); MDMA (ECSTASY), URINE NEGATIVE (NEGATIVE); METHADONE,URINE NEGATIVE (NEGATIVE); METHAMPHETAMINES,URINE NEGATIVE (NEGATIVE); OPIATES,URINE NEGATIVE (NEGATIVE); OXYCODONE,URINE NEGATIVE (NEGATIVE); PHENCYCLIDINE,URINE NEGATIVE (NEGATIVE); TCA,URINE NEGATIVE (NEGATIVE)
[2022-06-23] MEDS ORDERED: Nitrofurantoin Monohydrate/Macrocrystalline 100 MG Cap PO ONE (18:23)
[2022-06-23] MEDS ORDERED: Lidocaine 2% with EPINEPHrine 1:200,000 20 ML SDV INJECT ONE (19:03)
[2022-06-23] MEDS ORDERED: Oxymetazoline 0.05% Nasal Spray 30 ML Bottle NAS ONE (19:03)
[2022-06-23] MEDS ORDERED: Cephalexin 500 MG Cap ONE (21:08)
== END 2022-06-23 21:15 | disposition home or self-care (01) ==
LOC: DL.ED 14:30
DX: S00.81XA Abrasion of other part of head, initial encounter (principal); N30.01 Acute cystitis with hematuria; R55 Syncope and collapse; I10 Essential (primary) hypertension; J44.9 Chronic obstructive pulmonary disease, unspecified; E87.6 Hypokalemia; E86.0 Dehydration; M50.30 Other cervical disc degeneration, unspecified cervical region; D75.1 Secondary polycythemia; F17.210 Nicotine dependence, cigarettes, uncomplicated; Z79.02 Long term (current) use of antithrombotics/antiplatelets; Z79.899 Other long term (current) drug therapy; Z20.822 Contact with and (suspected) exposure to COVID-19; Z79.01 Long term (current) use of anticoagulants; W18.30XA Fall on same level, unspecified, initial encounter
CPT/HCPCS: 36415; 70450; 70486; 71045; 72125; 73060; 80053; 80305; 80307; 81001; 83605; 83735; 83880; 84145; 84484; 85025; 85610; 85730; 86140; 87635; 93005; 93010; 96360; 96361; 99284; 99285; A9270; J7120; U0002